=== PATIENT | male | born 1940 | race Caucasian/White ===

== ENCOUNTER 2018-09-28 16:07 | Emergency (ER) | payer OTHER, MEDICARE ==
--- NOTE | 2018-09-28 17:04 | EDM.PDOC ---
ED HPI GENERAL MEDICAL PROBLEM - General Stated Complaint: INJURY TO L WRIST Time Seen by Provider: 09/28/18 16:12 - History of Present Illness INITIAL COMMENTS - FREE TEXT/NARRATIVE: Patient left without being seen by a provider - Related Data Allergies Allergy/AdvReac Type Severity Reaction Status Date / Time Iodinated Contrast- Oral and Allergy Cannot Verified 05/19/16 19:41 IV Dye Remember [Iodinated Contrast Media - IV Dye] Penicillins Allergy Swelling Verified 05/19/16 19:41 Pork/Porcine Containing Allergy Rash Verified 05/19/16 19:41 Products terazosin [Terazosin] Allergy Cannot Verified 05/19/16 19:41 Remember hydrochlorothiazide AdvReac Fatigue Verified 05/20/16 08:47 Home Meds: Home Meds Acetaminophen [Tylenol Extra Strength] 500 - 1,000 mg PO Q4H PRN 03/23/14 [ History] Lisinopril 40 mg PO DAILY 03/23/14 [History] Omeprazole 40 mg PO DAILY 03/23/14 [History] Red Yeast Rice 1 cap PO BID 03/23/14 [History] amLODIPine [Norvasc] 5 mg PO BEDTIME 05/19/16 [History] diphenhydrAMINE [Benadryl] 25 - 50 mg PO BEDTIME PRN 05/20/16 [History] Past Medical History Cardiovascular History: Reports: High Cholesterol, Hypertension Oncologic (Cancer) History: Reports: Colon Social & Family History - Family History Family Medical History: Noncontributory - Caffeine Use Caffeine Use: Reports: None - Living Situation & Occupation Living situation: Reports: Occupation: Retired ED ROS GENERAL - Review of Systems Review Of Systems: Unable To Obtain ED EXAM, GENERAL - Physical Exam Exam: Not Obtained Departure - Departure Time of Disposition: 16:42 Disposition: Against Medical Advice 07 Clinical Impression: Patient left without being seen - Discharge Information *PRESCRIPTION DRUG MONITORING PROGRAM REVIEWED*: Not Applicable *COPY OF PRESCRIPTION DRUG MONITORING REPORT IN PATIENT SHIRAZ: Not Applicable Referrals: Luis Larsen MD [Primary Care Provider] - - Problem List Review Problem List Initiated/Reviewed/Updated: Yes - Assessment/Plan Assessment:: Left without being seen
== END 2018-09-28 16:45 | disposition left against medical advice (07) ==
LOC: VM.ED 16:07
DX: Z53.21 Procedure and treatment not carried out due to patient leaving prior to being seen by health care provider (principal)

== ENCOUNTER 2019-07-19 09:44 | Emergency (ER) | payer OTHER, MEDICARE ==
[2019-07-19 10:17] VITALS: BP 148/64; PULSE 79
--- NOTE | 2019-07-19 11:42 | EDM.PDOC ---
ED HPI GENERAL MEDICAL PROBLEM - General Chief Complaint: Back Pain or Injury Stated Complaint: back pain Time Seen by Provider: 07/19/19 11:19 Source of Information: Reports: Patient History Limitations: Reports: No Limitations - History of Present Illness INITIAL COMMENTS - FREE TEXT/NARRATIVE: Patient comes emergency department today with complaints of left lower back pain that has been going on for approximately the last week. The patient woke up at home about a week ago and had some sharp shooting stabbing intermittent left lateral lower back pain. He has had no recent falls trauma or injury. He has no radiculopathy down his leg. He has no difficulty with ambulation. He has no midline or paraspinal pain. He has no flank pain. He has no hematuria dysuria or urinary frequency. No fever no chills. No diarrhea. No rash or lesions. He has not tried anything for pain so far. Left Lower Back Pain Score (Numeric/FACES): 6 - Related Data Allergies Allergy/AdvReac Type Severity Reaction Status Date / Time Iodinated Contrast Media Allergy Cannot Verified 07/19/19 11:16 [Iodinated Contrast Media - Remember IV Dye] Penicillins Allergy Swelling Verified 07/19/19 11:16 Pork/Porcine Containing Allergy Rash Verified 07/19/19 11:16 Products terazosin [Terazosin] Allergy Cannot Verified 07/19/19 11:16 Remember hydrochlorothiazide AdvReac Fatigue Verified 07/19/19 11:16 Home Meds: Home Meds Acetaminophen [Tylenol Extra Strength] 500 - 1,000 mg PO Q4H PRN 03/23/14 [ History] Lisinopril 40 mg PO DAILY 03/23/14 [History] Omeprazole 40 mg PO DAILY 03/23/14 [History] Red Yeast Rice 1 cap PO BID 03/23/14 [History] amLODIPine [Norvasc] 5 mg PO BEDTIME 05/19/16 [History] diphenhydrAMINE [Benadryl] 25 - 50 mg PO BEDTIME PRN 05/20/16 [History] Past Medical History Cardiovascular History: Reports: High Cholesterol, Hypertension Oncologic (Cancer) History: Reports: Colon Social & Family History - Family History Family Medical History: Noncontributory - Tobacco Use Smoking Status *Q: Unknown Ever Smoked - Caffeine Use Caffeine Use: Reports: None - Living Situation & Occupation Living situation: Reports: Occupation: Retired ED ROS GENERAL - Review of Systems Review Of Systems: Comprehensive ROS is negative, except as noted in HPI. ED EXAM,LOWER BACK PAIN/INJURY - Physical Exam Exam: See Below Exam Limited By: No Limitations General Appearance: Alert, WD/WN, No Apparent Distress Head: Atraumatic, Normocephalic Neck: Normal Inspection, Supple, Non-Tender Respiratory/Chest: No Respiratory Distress, Lungs Clear, Normal Breath Sounds, No Accessory Muscle Use, Chest Non-Tender Cardiovascular: Normal Peripheral Pulses, Regular Rate, Rhythm GI/Abdominal: Normal Bowel Sounds, Soft, Non-Tender Back Exam: Normal Inspection, Other (Pain minimally reproducable on the left costal margin of the mid clavicular line mild tenderness. There is no bruising swelling ecchymosis bony deformity or other signs of trauma. There is no rash or lesions. There is no CVA tenderness. Negative straight leg raise bilaterally.). No: CVA Tenderness (L), CVA Tenderness (R), Paraspinal Tenderness, Vertebral Tenderness Extremities: Normal Inspection, Normal Range of Motion, Non-Tender, No Pedal Edema, Normal Capillary Refill Neurological: Alert, Normal Mood/Affect, CN II-XII Intact, Normal Gait, No Motor /Sensory Deficits, Oriented x 3 DTR - Lower Extremities: 2+: Knee (R), Knee (L), Ankle (R), Ankle (L) Psychiatric: Normal Affect, Normal Mood Skin Exam: Warm, Dry, Intact, Normal Color Course - Vital Signs Last Recorded V/S: Last Vital Signs Temp 37.8 C 07/19/19 09:55 Pulse 79 07/19/19 09:55 Resp 18 07/19/19 09:55 BP 148/64 H 07/19/19 09:55 Pulse Ox 98 07/19/19 09:55 - Orders/Labs/Meds Labs: Laboratory Tests 07/19/19 Range/Units 10:15 Urine Color Yellow (YELLOW) Urine Appearance Clear (CLEAR) Urine pH 7.0 (5.0-8.0) Ur Specific [place] 1.020 Urine Protein Negative (NEGATIVE) mg/dL Urine Glucose (UA) Negative (NEGATIVE) mg/dL Urine Ketones Negative (NEGATIVE) mg/dL Urine Occult Blood Negative (NEGATIVE) Urine Nitrite Negative (NEGATIVE) Urine Bilirubin Negative (NEGATIVE) Urine Urobilinogen 0.2 (0.2) EU/dL Ur Leukocyte Esterase Negative (NEGATIVE) - Radiology Interpretation Free Text/Narrative:: X-ray of the lumbar spine per radiology is negative for any acute findings. - Re-Assessments/Exams Free Text/Narrative Re-Assessment/Exam: 07/19/19 21:26 Analysis is unremarkable. The x-ray is unremarkable as well. This most likely mechanical musculoskeletal muscle spasm or pain. Ibuprofen symptomatic management heat and ice physical therapy if not improving he is comfortable this plan his questions are answered Departure - Departure Time of Disposition: 11:31 Disposition: Home, Self-Care 01 Clinical Impression: Back pain Qualifiers: Back pain location: low back pain Chronicity: acute Back pain laterality: left Sciatica presence: without sciatica Qualified Code(s): M54.5 - Low back pain - Discharge Information *PRESCRIPTION DRUG MONITORING PROGRAM REVIEWED*: Not Applicable *COPY OF PRESCRIPTION DRUG MONITORING REPORT IN PATIENT SHIRAZ: Not Applicable Instructions: Acute Back Pain, Adult, Muscle Strain, [id number], Pain Medicine Instructions, [id number] Referrals: Luis Larsen MD [Primary Care Provider] - Forms: ED Department Discharge Additional Instructions: Tylenol as needed for pain. Ibuprofen sparingly if Tylenol not controlling the pain. Heat or ice to the area. If improving over the next week consider. physical therapy. Return to the ED if new or worsening symptoms. Follow up with PCP in the next 4-6 days if not improving sooner if worse. Sepsis Event Note - Evaluation Sepsis Screening Result: No Definite Risk - Focused Exam Vital Signs: Vital Signs Temp Pulse Resp BP Pulse Ox 07/19/19 09:55 37.8 C 79 18 148/64 H 98 Date Exam was Performed: 07/19/19 Time Exam was Performed: 21:12 - Assessment/Plan Assessment:: Left lower back pain, more muscular than anything without injury. Plan: Tylenol as needed for pain. Ibuprofen sparingly if Tylenol not controlling the pain. Heat or ice to the area. If improving over the next week consider. physical therapy. Return to the ED if new or worsening symptoms. Follow up with PCP in the next 4-6 days if not improving sooner if worse.
--- NOTE | 2019-07-19 11:43 | CR ---
[id number] RAD/RAD Lumbar Spine 2-3V EXAM: RAD Lumbar Spine 2-3V INDICATION: LOWER BACK PAIN. COMPARISON: None. DISCUSSION: Mild convex left curvature centered at L2-L3. The vertebral bodies are otherwise normal in height and alignment. 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 Arterial calcifications in the aorta and its major branches. IMPRESSION: 1. Moderate lumbar spondylosis. Alexis Monroy MD 07/19/19 1142 Thank you for allowing us to participate in the care of your patient.
== END 2019-07-19 11:35 | disposition home or self-care (01) ==
LOC: VM.ED 09:44
DX: M54.5 Low back pain (principal); I10 Essential (primary) hypertension; Z79.899 Other long term (current) drug therapy; Z88.8 Allergy status to other drugs, medicaments and biological substances; Z91.041 Radiographic dye allergy status; Z88.0 Allergy status to penicillin
CPT/HCPCS: 72100; 81003; 99284-25; 99284-GF

== ENCOUNTER 2023-01-30 10:30 | Emergency (ER) | payer OTHER, MEDICARE ==
[2023-01-30 11:21] LABS: BASOPHILS PERCENT AUTO 0.2 % (0.2-1.2); EOSINOPHILS PERCENT AUTO 0.2 % (0.0-4.0); HEMATOCRIT 37.3 % (40.0-52.0); HEMOGLOBIN 13.2 g/dL (14.0-18.0); LYMPHOCYTES PERCENT AUTO 20.6 % (25.0-50.0); MEAN CORPUSCULAR HEMOGLOBIN 31.2 pg (26.0-32.0); MEAN CORPUSCULAR HGB CONC 35.4 g/dL (32.0-36.0); MEAN CORPUSCULAR VOLUME 88.2 fL (78.0-93.0); MONOCYTES ABSOLUTE AUTO 0.4 x10^3/uL (0.0-0.8); MONOCYTES PERCENT AUTO 7.8 % (2.0-11.0); NEUTROPHILS ABSOLUTE AUTO 3.4 x10^3/uL (1.8-7.7); NEUTROPHILS PERCENT AUTO 71.2 % (50.0-80.0); PLATELET COUNT,PLT 200 x10^3/uL (130-400); RED BLOOD CELL COUNT 4.23 x10^6/uL (4.5-6.0); WHITE BLOOD CELL COUNT,WBC 4.8 x10^3/uL (4.0-10.0)
[2023-01-30 11:33] LABS: PROTHROMBIN TIME 10.4 SEC (9.5-12.2); PTT,PARTIAL THROMBOPLSTIN TIME 27.6 SEC (23.6-33.6)
[2023-01-30 11:35] LABS: A/G RATIO 1.29; ALBUMIN 3.6 g/dL (3.4-5.0); ANION GAP 12.9 mmol/L (5-15); BILIRUBIN TOTAL 0.5 mg/dL (0.2-1.0); CREATININE 0.9 mg/dL (0.70-1.30); EST CRCL DRUG DOSING (CG) 67.06 mL/min; POTASSIUM,K 3.9 mmol/L (3.5-5.1); PROTEIN TOTAL,TP 6.4 g/dL (6.4-8.2)
[2023-01-30 11:38] LABS: LACTIC ACID 0.9 mmol/L (0.4-2.0)
[2023-01-30 12:00] LABS: CORONAVIRUS COVID-19 NAA POSITIVE (NEGATIVE); INFLUENZA A NAA NEGATIVE (NEGATIVE); INFLUENZA B NAA NEGATIVE (NEGATIVE); RESPIRATORY SYNCYTIAL VIR NAA NEGATIVE (NEGATIVE)
[2023-01-30 12:28] VITALS: BP 138/77; PULSE 60
== END 2023-01-30 12:20 | disposition home or self-care (01) ==
LOC: VM.ED 10:30
DX: U07.1 COVID-19 (principal); I10 Essential (primary) hypertension; Z87.891 Personal history of nicotine dependence; Z86.16 Personal history of COVID-19; Z79.899 Other long term (current) drug therapy; Z91.018 Allergy to other foods; Z88.8 Allergy status to other drugs, medicaments and biological substances; Z91.041 Radiographic dye allergy status; Z88.0 Allergy status to penicillin
CPT/HCPCS: 0241U; 36415; 71045; 80053; 83605; 85025; 85610; 85730; 99284; 99285